=== PATIENT | female | born 1995 | race Two or more races ===

== ENCOUNTER 2017-02-25 14:50 | Outpatient (CLI) | payer OTHER ==
[2017-02-26 20:16] LABS: TEST RESULT REPORT (())
== END 2017-02-25 14:51 | disposition home or self-care (01) ==
LOC: LAB.R 14:50
PROVIDERS: ATTEND Physician Assistant Medical
DX: N76.0 Acute vaginitis (principal)
CPT/HCPCS: 81599; 87086; 87480; 87510; 87660